=== PATIENT | male | born 1955 | race Caucasian/White ===

== ENCOUNTER 2020-03-26 08:18 | Outpatient (CLI) | payer MEDICARE, SELFPAY ==
[2020-03-26 08:56] LABS: Albumin Level 4.2 g/dL (3.5-5.1); Anion Gap 6 mmol/L (8-16); Blood Urea Nitrogen 20 mg/dL (9-20); Calcium 9.2 mg/dL (8.4-10.2); Carbon Dioxide 29 mmol/L (22-30); Chloride 106 mmol/L (98-107); Estimated Glomerular Filt Rate 51; Glucose 107 mg/dL (75-110); Potassium 4.4 mmol/L (3.4-5.0); Sodium 141 mmol/L (137-145)
== END 2020-03-26 08:19 | disposition home or self-care (01) ==
PROVIDERS: PCP Family Medicine; Visit Provider Internal Medicine Nephrology
DX: R94.4 Abnormal results of kidney function studies (principal)
CPT/HCPCS: 36415; 80069

== ENCOUNTER 2020-08-18 12:40 | Outpatient (CLI) | payer MEDICARE, SELFPAY ==
[2020-08-18 13:26] LABS: Hemoglobin A1C 5.3 % (<5.7)
[2020-08-18 15:04] LABS: Free T4 Free Thyroxine 1.05 ng/mL (0.78-2.19)
[2020-08-20 07:32] LABS: Triiodothyronine T3 Free 3.3 pg/mL (2.3-4.2)
== END 2020-08-18 12:41 | disposition home or self-care (01) ==
LOC: ANHLAB 12:42
PROVIDERS: PCP Physician Assistant; Visit Provider Physician Assistant
DX: E03.9 Hypothyroidism, unspecified (principal); R73.01 Impaired fasting glucose
CPT/HCPCS: 36415; 83036; 84439; 84443; 84481

== ENCOUNTER 2020-10-08 10:02 | Outpatient (CLI) | payer MEDICARE, SELFPAY ==
[2020-10-08 10:21] LABS: Hemoglobin 12.9 g/dL (14.0-18.0); Mean Corpuscular HGB Conc 33.9 g/dl (32-36); Mean Corpuscular Hemoglobin 32.9 pg (26-34); Mean Corpuscular Volume 96.9 fl (80-100); Mean Platelet Volume 10.8 fl (7.4-10.4); Platelet Count Result 205 k/mm3 (150-375); Red Blood Count 3.92 M/mm3 (4.6-6.20); Red Cell Distribution Width 11.9 % (11.5-14.5)
[2020-10-08 10:35] LABS: Albumin Level 4.3 g/dL (3.5-5.1); Anion Gap 6 mmol/L (8-16); Blood Urea Nitrogen 28 mg/dL (9-20); Calcium 8.7 mg/dL (8.4-10.2); Carbon Dioxide 31 mmol/L (22-30); Chloride 103 mmol/L (98-107); Estimated Glomerular Filt Rate 38; Glucose 119 mg/dL (75-110); Phosphorus 3.8 mg/dL (2.5-4.5); Potassium 4.3 mmol/L (3.4-5.0); Sodium 140 mmol/L (137-145)
[2020-10-08 10:36] LABS: Creatinine Urine 209.1 mg/dL
[2020-10-08 10:51] LABS: Total Protein Urine Random 8 mg/dL; Ur Ttl Prot Creatinine Ratio 0.04 mg/mg (0-0.20)
[2020-10-08 11:09] LABS: Parathyroid Intact 83.1 pg/mL (7.5-53.5)
[2020-10-08 11:28] LABS: Vitamin D 25 Hydroxy 36.3 ng/mL
== END 2020-10-08 10:03 | disposition home or self-care (01) ==
LOC: ANHLAB 10:04
PROVIDERS: PCP Physician Assistant; Visit Provider Internal Medicine Nephrology
DX: N18.30 Chronic kidney disease, stage 3 unspecified (principal)
CPT/HCPCS: 36415; 80069; 82306; 82570; 83970; 84156; 85027

== ENCOUNTER 2020-11-10 13:37 | Outpatient (CLI) | payer MEDICARE, SELFPAY ==
[2020-11-10 14:09] LABS: Hematocrit 38.9 % (42.0-52.0); Hemoglobin 12.9 g/dL (14.0-18.0); Mean Corpuscular HGB Conc 33.2 g/dl (32-36); Mean Corpuscular Hemoglobin 32.5 pg (26-34); Mean Platelet Volume 10.9 fl (7.4-10.4); Platelet Count Result 214 k/mm3 (150-375); Red Blood Count 3.97 M/mm3 (4.6-6.20); Red Cell Distribution Width 11.3 % (11.5-14.5); White Blood Count 6.7 K/mm3 (4.5-10.0)
[2020-11-10 14:17] LABS: Creatinine Urine 175.5 mg/dL; Total Protein Urine Random 9 mg/dL; Ur Ttl Prot Creatinine Ratio 0.05 mg/mg (0-0.20)
[2020-11-10 14:24] LABS: Albumin Level 4.5 g/dL (3.5-5.1); Anion Gap 6 mmol/L (8-16); Blood Urea Nitrogen 28 mg/dL (9-20); Calcium 9.4 mg/dL (8.4-10.2); Carbon Dioxide 31 mmol/L (22-30); Chloride 106 mmol/L (98-107); Estimated Glomerular Filt Rate 38; Glucose 106 mg/dL (75-110); Phosphorus 3.6 mg/dL (2.5-4.5); Potassium 4.6 mmol/L (3.4-5.0); Sodium 143 mmol/L (137-145)
[2020-11-10 14:35] LABS: Parathyroid Intact 63.8 pg/mL (7.5-53.5)
== END 2020-11-10 13:38 | disposition home or self-care (01) ==
LOC: ANHLAB 13:45
PROVIDERS: PCP Physician Assistant; Visit Provider Internal Medicine Nephrology
DX: N18.31 Chronic kidney disease, stage 3a (principal)
CPT/HCPCS: 36415; 80069; 82570; 83970; 84156; 85027

== ENCOUNTER 2021-02-01 09:52 | Outpatient (CLI) | payer MEDICARE, SELFPAY ==
[2021-02-01 10:43] LABS: Albumin Level 4.4 g/dL (3.5-5.1); Anion Gap 8 mmol/L (8-16); Blood Urea Nitrogen 20 mg/dL (9-20); Calcium 9.4 mg/dL (8.4-10.2); Carbon Dioxide 29 mmol/L (22-30); Chloride 103 mmol/L (98-107); Estimated Glomerular Filt Rate 34; Glucose 96 mg/dL (65-110); Phosphorus 4.2 mg/dL (2.5-4.5); Potassium 4.7 mmol/L (3.4-5.0); Sodium 140 mmol/L (137-145)
[2021-02-01 11:15] LABS: Creatinine Urine 124.3 mg/dL; Total Protein Urine Random 12 mg/dL
== END 2021-02-01 09:53 | disposition home or self-care (01) ==
PROVIDERS: PCP Physician Assistant; Visit Provider Internal Medicine Nephrology
DX: N18.31 Chronic kidney disease, stage 3a (principal)
CPT/HCPCS: 36415; 80069; 82570; 84156

== ENCOUNTER 2021-02-18 07:22 | Outpatient (CLI) | payer MEDICARE, SELFPAY ==
[2021-02-15 09:33] VITALS: BMI 26.4
[2021-02-18] VITALS (12 sets, daily range): BP systolic 109–157; BP diastolic 62–90; PULSE 48–65; RESP 14–20; O2SAT 95–99
--- NOTE | ~2021-02-18 | US_ITS ---
EXAMINATION: US biopsy renal DATE: 02/18/2021 10:53 INDICATION: Stage IIIB chronic kidney disease. TECHNIQUE: The procedure including the risks, benefits, and alternatives was discussed with the patie nt. Risks discussed included bleeding and infection. The patient understood the risks and agreed to p roceed. A timeout was performed to verify the patient's name, date of , and procedure to be p erformed. The skin overlying the left kidney was prepped and draped in usual sterile fashion. Anest hetic was administered with 1% lidocaine subcutaneously. An 18 gauge core biopsy needle was then use d to obtain 3 core biopsy specimens under continuous sonographic guidance. The entry site was cleaned and dressed. There were no immediate complications. FINDINGS: Ultrasound images demonstrate the needle in the kidney. IMPRESSION: 1. Ultrasound-guided random left kidney core needle biopsy. Reviewed, dictated and finalized at location A.
[2021-02-18 08:18] LABS: Mean Platelet Volume 10.9 fl (7.4-10.4); Platelet Count Result 258 k/mm3 (150-375)
[2021-02-18 08:31] LABS: Prothrombin Time 12.6 Seconds (11.1-14.7)
--- NOTE | 2021-02-18 13:40 | SUR.PHASEII ---
1340- Discharge instructions reviewed with patient and Venkat verbalized understanding. All questions and concerns answered.
== END 2021-02-18 13:50 | disposition home or self-care (01) ==
PROVIDERS: Radiology Diagnostic Radiology; PCP Family Medicine; Visit Provider Internal Medicine Nephrology
DX: N18.32 Chronic kidney disease, stage 3b (principal)
CPT/HCPCS: 36415; 50200; 76942; 85049; 85610; 88300; 88305; 88313; 88329; 88346; 88348; 88350

== ENCOUNTER 2021-06-22 12:38 | Outpatient (CLI) | payer MEDICARE, SELFPAY ==
[2021-06-22 13:13] LABS: Hemoglobin 12.4 g/dL (14.0-18.0); Mean Corpuscular HGB Conc 33.5 g/dl (32-36); Mean Corpuscular Hemoglobin 32.3 pg (26-34); Mean Corpuscular Volume 96.4 fl (80-100); Mean Platelet Volume 10.6 fl (7.4-10.4); Platelet Count Result 233 k/mm3 (150-375); Red Blood Count 3.84 M/mm3 (4.6-6.20); Red Cell Distribution Width 11.8 % (11.5-14.5); White Blood Count 7.8 K/mm3 (4.5-10.0)
[2021-06-22 13:21] LABS: Creatinine Urine 77.4 mg/dL
[2021-06-22 13:24] LABS: Albumin Level 4.1 g/dL (3.5-5.1); Anion Gap 8 mmol/L (8-16); Blood Urea Nitrogen 28 mg/dL (9-20); Calcium 8.8 mg/dL (8.4-10.2); Carbon Dioxide 30 mmol/L (22-30); Chloride 100 mmol/L (98-107); Estimated Glomerular Filt Rate 36; Glucose 114 mg/dL (65-110); Phosphorus 3.7 mg/dL (2.5-4.5); Potassium 4.1 mmol/L (3.4-5.0); Sodium 138 mmol/L (137-145)
[2021-06-22 13:36] LABS: Parathyroid Intact 86.8 pg/mL (7.5-53.5)
[2021-06-22 19:57] LABS: Total Protein Urine Random 12 mg/dL; Ur Ttl Prot Creatinine Ratio 0.16 mg/mg (0-0.20)
== END 2021-06-22 12:39 | disposition home or self-care (01) ==
PROVIDERS: PCP Family Medicine; Visit Provider Internal Medicine Nephrology
DX: N18.32 Chronic kidney disease, stage 3b (principal)
CPT/HCPCS: 36415; 80069; 82570; 83970; 84156; 84166; 85027

== ENCOUNTER 2021-09-09 08:59 | Outpatient (CLI) | payer MEDICARE, SELFPAY ==
[2021-09-09 09:42] LABS: Hematocrit 38.3 % (42.0-52.0); Hemoglobin 12.9 g/dL (14.0-18.0); Mean Corpuscular HGB Conc 33.7 g/dl (32-36); Mean Corpuscular Hemoglobin 33.2 pg (26-34); Mean Corpuscular Volume 98.7 fl (80-100); Mean Platelet Volume 11.2 fl (7.4-10.4); Platelet Count Result 245 k/mm3 (150-375); Red Blood Count 3.88 M/mm3 (4.6-6.20); Red Cell Distribution Width 11.8 % (11.5-14.5); Reticulocyte Percent 1.08 % (0.7-4.3); Reticulocytes Absolute 0.04 B/L (32.2-175.7); White Blood Count 8.9 K/mm3 (4.5-10.0)
[2021-09-09 09:56] LABS: Alanine Aminotransferase 16 U/L (4-50); Albumin Level 4.3 g/dL (3.5-5.1); Alkaline Phosphatase 67 U/L (38-126); Anion Gap 9 mmol/L (8-16); Aspartate Amino Transferase 30 U/L (17-59); Bilirubin,Total 0.6 mg/dL (0.2-1.3); Blood Urea Nitrogen 24 mg/dL (9-20); Carbon Dioxide 31 mmol/L (22-30); Chloride 100 mmol/L (98-107); Estimated Glomerular Filt Rate 41; Glucose 147 mg/dL (65-110); Sodium 140 mmol/L (137-145)
[2021-09-09 10:21] LABS: Iron 100 ug/dL (49-181)
[2021-09-09 10:24] LABS: Prostate Specific Antigen 0.7 ng/mL (< OR = 4.0)
[2021-09-09 10:33] LABS: Percent Iron Saturation 30 % (20-50)
[2021-09-09 11:44] LABS: Free T4 Free Thyroxine Reflex 0.91 ng/dL (0.78-2.19)
[2021-09-09 12:24] LABS: Total Triiodothyronine (T3) 1.23 NG/ML (0.97-1.69)
== END 2021-09-09 09:00 | disposition home or self-care (01) ==
PROVIDERS: PCP Family Medicine; Visit Provider Family Medicine
DX: D64.9 Anemia, unspecified (principal); R79.89 Other specified abnormal findings of blood chemistry; Z12.5 Encounter for screening for malignant neoplasm of prostate; I12.9 Hypertensive chronic kidney disease with stage 1 through stage 4 chronic kidney disease, or unspecified chronic kidney disease; N18.30 Chronic kidney disease, stage 3 unspecified
CPT/HCPCS: 36415; 80053; 82728; 83540; 83550; 84153; 84439; 84443; 84480; 85027; 85046; G0103

== ENCOUNTER 2021-12-30 07:17 | Outpatient (CLI) | payer MEDICARE, SELFPAY ==
[2021-12-30 08:07] LABS: Creatinine Urine 72.2 mg/dL; Total Protein Urine Random 12 mg/dL; Ur Ttl Prot Creatinine Ratio 0.17 mg/mg (0-0.20)
[2021-12-30 08:33] LABS: Hematocrit 37.4 % (42.0-52.0); Hemoglobin 12.4 g/dL (14.0-18.0); Mean Corpuscular HGB Conc 33.2 g/dl (32-36); Mean Corpuscular Hemoglobin 32.6 pg (26-34); Mean Corpuscular Volume 98.4 fl (80-100); Mean Platelet Volume 10.9 fl (7.4-10.4); Platelet Count Result 250 k/mm3 (150-375); Red Cell Distribution Width 11.5 % (11.5-14.5); White Blood Count 6.6 K/mm3 (4.5-10.0)
[2021-12-30 08:45] LABS: Parathyroid Intact 49.7 pg/mL (7.5-53.5)
[2021-12-30 08:48] LABS: Albumin Level 4.4 g/dL (3.5-5.1); Anion Gap 4 mmol/L (8-16); Blood Urea Nitrogen 28 mg/dL (9-20); Calcium 8.8 mg/dL (8.4-10.2); Carbon Dioxide 30 mmol/L (22-30); Chloride 102 mmol/L (98-107); Estimated Glomerular Filt Rate 36; Glucose 114 mg/dL (65-110); Phosphorus 3.1 mg/dL (2.5-4.5); Potassium 4.7 mmol/L (3.4-5.0); Sodium 136 mmol/L (137-145)
[2021-12-30 09:06] LABS: Vitamin D 25 Hydroxy 63.6 ng/mL
== END 2021-12-30 07:18 | disposition home or self-care (01) ==
LOC: ANHLAB 07:24
PROVIDERS: PCP Family Medicine; Visit Provider Internal Medicine Nephrology
DX: N18.32 Chronic kidney disease, stage 3b (principal); E21.1 Secondary hyperparathyroidism, not elsewhere classified
CPT/HCPCS: 36415; 80069; 82306; 82570; 83970; 84156; 85027

== ENCOUNTER 2022-03-22 10:21 | Outpatient (CLI) | payer MEDICARE, SELFPAY ==
[2022-03-22 10:59] LABS: Hematocrit 36.5 % (42.0-52.0); Hemoglobin 12.5 g/dL (14.0-18.0); Immature Reticulocyte Fraction 9.8 % (3.0-15.9); Mean Corpuscular HGB Conc 34.2 g/dl (32-36); Mean Corpuscular Hemoglobin 33.1 pg (26-34); Mean Corpuscular Volume 96.6 fl (80-100); Mean Platelet Volume 9.8 fl (7.4-10.4); Platelet Count Result 274 k/mm3 (150-375); Red Blood Count 3.78 M/mm3 (4.6-6.20); Red Cell Distribution Width 11.4 % (11.5-14.5); Reticulocyte Hemoglobin Conten 38.5 pg (28.2-35.7); Reticulocyte Percent 1.08 % (0.7-4.3); Reticulocytes Absolute 0.04 B/L (32.2-175.7); White Blood Count 7.4 K/mm3 (4.5-10.0)
[2022-03-22 11:14] LABS: Alanine Aminotransferase 18 U/L (6-50); Albumin Level 4.3 g/dL (3.5-5.1); Alkaline Phosphatase 77 U/L (38-126); Anion Gap 10 mmol/L (8-16); Aspartate Amino Transferase 28 U/L (17-59); Bilirubin,Total 0.4 mg/dL (0.2-1.3); Blood Urea Nitrogen 15 mg/dL (9-20); Calcium 9.1 mg/dL (8.4-10.2); Carbon Dioxide 29 mmol/L (22-30); Chloride 100 mmol/L (98-107); Cholesterol 140 mg/dL (0-200); Estimated Glomerular Filt Rate 43; Glucose 104 mg/dL (65-110); HDL Direct 41 mg/dL; Potassium 4.2 mmol/L (3.4-5.0); Sodium 139 mmol/L (137-145); Triglycerides 113 mg/dL (<150)
[2022-03-22 11:25] LABS: LDL Cholesterol Direct 79 mg/dL
[2022-03-22 11:34] LABS: Hemoglobin A1C 5.5 % (<5.7)
[2022-03-23 11:14] LABS: Free T4 Free Thyroxine Reflex 1.17 ng/dL (0.78-2.19)
[2022-03-23 12:18] LABS: Total Triiodothyronine (T3) 1.39 NG/ML (0.97-1.69)
[2022-03-25 10:40] LABS: Hemoglobin 12.5 g/dL (13.2-17.1); MCH 32.6 pg (27.0-33.0); MCV 96.4 fL (80.0-100.0); RDW 11.4 % (11.0-15.0); Red Blood Cell Count 3.84 Mill/uL (4.20-5.80)
== END 2022-03-22 10:22 | disposition home or self-care (01) ==
PROVIDERS: PCP Family Medicine; Visit Provider Family Medicine
DX: D64.9 Anemia, unspecified (principal); E78.2 Mixed hyperlipidemia; E03.9 Hypothyroidism, unspecified; E11.9 Type 2 diabetes mellitus without complications; I10 Essential (primary) hypertension
CPT/HCPCS: 36415; 80053; 80061; 82248; 83021; 83036; 84439; 84443; 84480; 85027; 85046

== ENCOUNTER 2022-07-01 07:39 | Outpatient (CLI) | payer MEDICARE, SELFPAY ==
[2022-07-01 07:55] LABS: Basophils Percent Auto 0.4 % (0.2-1.2); Eosinophils Absolute Auto 0.2 K/mm3 (0-0.3); Eosinophils Percent Auto 2.3 % (0-4.4); Hematocrit 37.6 % (42.0-52.0); Hemoglobin 12.6 g/dL (14.0-18.0); Immature Granulocyte Absolute 0.01 K/mm3 (0.00-0.031); Immature Granulocyte Percent A 0.1 % (0-0.5); Lymphocytes Absolute Auto 2.53 K/mm3 (0.9-3.2); Lymphocytes Percent Auto 36.4 % (18.3-44.2); Mean Corpuscular HGB Conc 33.5 g/dl (32-36); Mean Corpuscular Volume 95.4 fl (80-100); Mean Platelet Volume 9.9 fl (7.4-10.4); Monocytes Absolute Auto 0.5 K/mm3 (0.1-0.6); Monocytes Percent Auto 7.2 % (2.6-8.5); Neutrophils Absolute Auto 3.7 K/mm3 (1.3-6.7); Neutrophils Percent Auto 53.6 % (45.5-73.1); Platelet Count Result 247 k/mm3 (150-375); Red Blood Count 3.94 M/mm3 (4.6-6.20); Red Cell Distribution Width 12.1 % (11.5-14.5)
[2022-07-01 07:58] LABS: Add Urine Microscopic? NO; Appearance Urine Clear (Clear); Bilirubin Urine Negative (Negative); Blood Urine Negative (Negative); Color Urine Yellow (Yellow); Glucose Urine UA Negative (Negative); Ketones Urine Negative (Negative); Leukocyte Esterase Ur Negative LEU/UL (Negative); Nitrate Urine Negative (Negative); Protein Urine Negative (Negative); Specific Grav Ur <= 1.005 (1.001-1.035); Urobilinogen Urine 0.2 mg/dL (<2.0)
[2022-07-01 08:14] LABS: Alanine Aminotransferase 19 U/L (6-50); Albumin Level 4.4 g/dL (3.5-5.1); Alkaline Phosphatase 72 U/L (38-126); Anion Gap 6 mmol/L (8-16); Aspartate Amino Transferase 27 U/L (17-59); Bilirubin,Total 0.5 mg/dL (0.2-1.3); Blood Urea Nitrogen 26 mg/dL (9-20); Calcium 8.7 mg/dL (8.4-10.2); Carbon Dioxide 30 mmol/L (22-30); Chloride 103 mmol/L (98-107); Cholesterol 164 mg/dL (0-200); Estimated Glomerular Filt Rate 38; Glucose 113 mg/dL (65-110); HDL Direct 44 mg/dL; Potassium 4.6 mmol/L (3.4-5.0); Sodium 139 mmol/L (137-145); Triglycerides 76 mg/dL (<150)
[2022-07-01 08:25] LABS: LDL Cholesterol Direct 90 mg/dL
[2022-07-01 08:32] LABS: Erythrocyte Sedimentation Rate 18 mm/hr (0-20)
[2022-07-01 10:50] LABS: Vitamin D 25 Hydroxy 44.4 ng/mL
[2022-07-01 22:40] LABS: Total Triiodothyronine (T3) 1.39 NG/ML (0.97-1.69)
== END 2022-07-01 07:40 | disposition home or self-care (01) ==
PROVIDERS: PCP Family Medicine; Visit Provider Family Medicine
DX: E78.2 Mixed hyperlipidemia (principal); E55.9 Vitamin D deficiency, unspecified; D64.9 Anemia, unspecified; M45.0 Ankylosing spondylitis of multiple sites in spine; E03.9 Hypothyroidism, unspecified; I12.9 Hypertensive chronic kidney disease with stage 1 through stage 4 chronic kidney disease, or unspecified chronic kidney disease; N18.30 Chronic kidney disease, stage 3 unspecified
CPT/HCPCS: 36415; 80053; 80061; 81003; 82306; 84439; 84443; 84480; 85025; 85652

== ENCOUNTER 2023-01-05 07:26 | Outpatient (CLI) | payer MEDICARE, SELFPAY ==
--- NOTE | ~2023-01-05 | XR_ITS ---
EXAMINATION: XR abdomen/kub 1V INDICATION: Kidney stone burden TECHNIQUE: Supine views of the abdomen were obtained on three radiographs. COMPARISON: 02/14/2018 FINDINGS: Bowel contents project over the kidneys limiting sensitivity for renal stones. No definite urolithiasis is identified. There are phleboliths of the pelvis. The visualized lung bases are clear. There is mild osteoarthritis of the hips. IMPRESSION: 1. No urolithiasis identified. Consider further evaluation with CT if urolithiasis is suspected. Reviewed, dictated and finalized at location L. IMPRESSION: 1. No urolithiasis identified. Consider further evaluation with CT if urolithia sis is suspected.
[2023-01-05 08:00] LABS: Hematocrit 35.4 % (42.0-52.0); Hemoglobin 11.9 g/dL (14.0-18.0); Mean Corpuscular HGB Conc 33.6 g/dl (32-36); Mean Corpuscular Hemoglobin 32.3 pg (26-34); Mean Corpuscular Volume 96.2 fl (80-100); Mean Platelet Volume 9.2 fl (7.4-10.4); Platelet Count Result 333 k/mm3 (150-375); Red Blood Count 3.68 M/mm3 (4.6-6.20); Red Cell Distribution Width 11.2 % (11.5-14.5); White Blood Count 6.4 K/mm3 (4.5-10.0)
[2023-01-05 08:01] LABS: Appearance Urine Clear (Clear); Bilirubin Urine Negative (Negative); Blood Urine Negative (Negative); Color Urine Yellow (Yellow); Glucose Urine UA Negative (Negative); Ketones Urine Negative (Negative); Leukocyte Esterase Ur Negative LEU/UL (NEGATIVE); Nitrate Urine Negative (Negative); Protein Urine Negative (Negative); Specific Grav Ur 1.009 (1.001-1.035); Urobilinogen Urine 0.2 mg/dL (<2.0)
[2023-01-05 08:22] LABS: Total Protein Urine Random 12 mg/dL
[2023-01-05 08:25] LABS: Alanine Aminotransferase 18 U/L (6-50); Albumin Level 4.6 g/dL (3.5-5.1); Alkaline Phosphatase 64 U/L (38-126); Aspartate Amino Transferase 28 U/L (17-59); Bilirubin,Total 0.5 mg/dL (0.2-1.3)
[2023-01-05 08:26] LABS: Add Urine Microscopic? NO
[2023-01-05 08:26] LABS: Albumin Level 4.6 g/dL (3.5-5.1); Anion Gap 7 mmol/L (8-16); Blood Urea Nitrogen 19 mg/dL (9-20); Calcium 9.2 mg/dL (8.4-10.2); Carbon Dioxide 35 mmol/L (22-30); Chloride 92 mmol/L (98-107); Estimated Glomerular Filt Rate 51; Glucose 107 mg/dL (65-110); Phosphorus 3.8 mg/dL (2.5-4.5); Potassium 4.1 mmol/L (3.4-5.0); Sodium 134 mmol/L (137-145)
[2023-01-05 08:28] LABS: Creatinine Urine 103.7 mg/dL; Ur Ttl Prot Creatinine Ratio 0.12 mg/mg (0-0.20)
[2023-01-05 08:36] LABS: Iron 104 ug/dL (49-181)
[2023-01-05 08:38] LABS: Parathyroid Intact 34.1 pg/mL (7.5-53.5)
[2023-01-05 08:44] LABS: Percent Iron Saturation 30 % (20-50)
[2023-01-05 08:49] LABS: Hemoglobin A1C 5.6 % (<5.7)
[2023-01-05 08:55] LABS: Prostate Specific Antigen 0.7 ng/mL (< OR = 4.0)
== END 2023-01-05 07:27 | disposition home or self-care (01) ==
PROVIDERS: PCP Family Medicine; Referring Provider Internal Medicine Nephrology; Visit Provider Family Medicine
DX: R73.9 Hyperglycemia, unspecified (principal); Z12.5 Encounter for screening for malignant neoplasm of prostate; D64.9 Anemia, unspecified; E03.9 Hypothyroidism, unspecified; Z79.899 Other long term (current) drug therapy; N18.32 Chronic kidney disease, stage 3b; I10 Essential (primary) hypertension; N20.0 Calculus of kidney
CPT/HCPCS: 36415; 74018; 80069; 80076; 81003; 82570; 82728; 83036; 83540; 83550; 83970; 84153; 84156; 84443; 84550; 85027; G0103

== ENCOUNTER 2023-01-06 08:41 | Outpatient (CLI) | payer MEDICARE, SELFPAY ==
[2023-01-16 19:09] LABS: Magnesium, 24-Hour Urine 135 mg/day (>60.0); Phosphorus, 24-Hour Urine 406 mg/day (<1100); Sodium 24 Hour Urine 96 mEq/day (<200); Total Volume 24 Hour Urine 2 L/day (>2.00); Uric Acid, 24-Hour Urine 350 mg/day (<700)
== END 2023-01-06 08:42 | disposition home or self-care (01) ==
PROVIDERS: PCP Family Medicine; Visit Provider Internal Medicine Nephrology
DX: N20.0 Calculus of kidney (principal); I12.9 Hypertensive chronic kidney disease with stage 1 through stage 4 chronic kidney disease, or unspecified chronic kidney disease; N18.32 Chronic kidney disease, stage 3b
CPT/HCPCS: 82340

== ENCOUNTER 2023-07-04 07:12 | Outpatient (CLI) | payer MEDICARE, SELFPAY ==
[2023-07-04 07:40] LABS: Hematocrit 35.4 % (42.0-52.0); Hemoglobin 11.7 g/dL (14.0-18.0); Mean Corpuscular HGB Conc 33.1 g/dl (32-36); Mean Corpuscular Hemoglobin 32.8 pg (26-34); Mean Corpuscular Volume 99.2 fl (80-100); Mean Platelet Volume 9.3 fl (7.4-10.4); Platelet Count Result 281 k/mm3 (150-375); Red Blood Count 3.57 M/mm3 (4.6-6.20); Red Cell Distribution Width 11.3 % (11.5-14.5); White Blood Count 6.6 K/mm3 (4.5-10.0)
[2023-07-04 07:44] LABS: Appearance Urine Clear (Clear); Bilirubin Urine Negative (Negative); Blood Urine Negative (Negative); Color Urine Yellow (Yellow); Glucose Urine UA Negative (Negative); Ketones Urine Negative (Negative); Leukocyte Esterase Ur Negative LEU/UL (NEGATIVE); Nitrate Urine Negative (Negative); Protein Urine Negative (Negative); Specific Grav Ur 1.009 (1.001-1.035); Urobilinogen Urine 0.2 mg/dL (<2.0); pH Urine 6.5 (5.0-9.0)
[2023-07-04 07:52] LABS: Albumin Level 4.2 g/dL (3.5-5.1); Anion Gap 7 mmol/L (8-16); Blood Urea Nitrogen 23 mg/dL (9-20); Carbon Dioxide 30 mmol/L (22-30); Chloride 95 mmol/L (98-107); Estimated Glomerular Filt Rate 47; Glucose 113 mg/dL (65-110); Phosphorus 3.6 mg/dL (2.5-4.5); Potassium 4.9 mmol/L (3.4-5.0); Sodium 132 mmol/L (137-145); Uric Acid 7.4 mg/dL (3.5-8.5)
[2023-07-04 07:53] LABS: Creatinine Urine 77.9 mg/dL; Total Protein Urine Random 15 mg/dL; Ur Ttl Prot Creatinine Ratio 0.19 mg/mg (0-0.20)
[2023-07-04 08:01] LABS: Parathyroid Intact 39.5 pg/mL (7.5-53.5)
[2023-07-04 08:09] LABS: Add Urine Microscopic? YES
== END 2023-07-04 07:13 | disposition home or self-care (01) ==
LOC: ANHLAB 07:15
PROVIDERS: PCP Family Medicine; Visit Provider Internal Medicine Nephrology
DX: N20.0 Calculus of kidney (principal); N18.32 Chronic kidney disease, stage 3b; N18.9 Chronic kidney disease, unspecified
CPT/HCPCS: 36415; 80069; 81001; 82570; 83970; 84156; 84550; 85027

== ENCOUNTER 2023-07-14 06:46 | Outpatient (CLI) | payer MEDICARE, SELFPAY ==
[2023-07-14 09:56] LABS: Free T4 Free Thyroxine Reflex 1.45 ng/dL (0.78-2.19)
[2023-07-14 10:36] LABS: Total Triiodothyronine (T3) 1.44 NG/ML (0.97-1.69)
== END 2023-07-14 06:47 | disposition home or self-care (01) ==
LOC: ANHLAB 07:01
PROVIDERS: PCP Family Medicine; Visit Provider Family Medicine
DX: E03.9 Hypothyroidism, unspecified (principal); E53.8 Deficiency of other specified B group vitamins
CPT/HCPCS: 36415; 82607; 84439; 84443; 84480

== ENCOUNTER 2024-01-03 06:40 | Outpatient (CLI) | payer MEDICARE, SELFPAY ==
--- NOTE | ~2024-01-03 | XR_ITS ---
XR abdomen/kub 1V 01/03/2024 07:12 INDICATION: Kidney stones. Hyponatremia. TECHNIQUE: KUB COMPARISON: None FINDINGS: Bowel gas pattern is normal. There is no evidence of free air, mass, organomegaly, ascites or obstruction. No abnormal calculi are seen. Kidneys obscured by bowel content. Lung bases are unr emarkable. The bones appear intact. IMPRESSION: 1: No acute abdominal abnormality identified. Reviewed, dictated and finalized at location B.
[2024-01-03 07:55] LABS: Hematocrit 36.6 % (42.0-52.0); Hemoglobin 12.4 g/dL (14.0-18.0); Mean Corpuscular HGB Conc 33.9 g/dl (32-36); Mean Corpuscular Hemoglobin 33.2 pg (26-34); Mean Corpuscular Volume 97.9 fl (80-100); Mean Platelet Volume 10.5 fl (7.4-10.4); Platelet Count Result 287 k/mm3 (150-375); Red Blood Count 3.74 M/mm3 (4.6-6.20); Red Cell Distribution Width 11.4 % (11.5-14.5); White Blood Count 5.4 K/mm3 (4.5-10.0)
[2024-01-03 08:13] LABS: Alanine Aminotransferase 15 U/L (6-50); Albumin Level 4.6 g/dL (3.5-5.1); Alkaline Phosphatase 70 U/L (38-126); Aspartate Amino Transferase 27 U/L (17-59); Bilirubin,Total 0.6 mg/dL (0.2-1.3); Cholesterol 147 mg/dL (0-200); HDL Direct 55 mg/dL; Triglycerides 92 mg/dL (<150)
[2024-01-03 08:14] LABS: Albumin Level 4.6 g/dL (3.5-5.1); Anion Gap 7 mmol/L (4-12); Blood Urea Nitrogen 17 mg/dL (9-20); Calcium 9.1 mg/dL (8.4-10.2); Carbon Dioxide 32 mmol/L (22-30); Chloride 96 mmol/L (98-107); Estimated Glomerular Filt Rate 47; Glucose 109 mg/dL (65-110); Phosphorus 3.2 mg/dL (2.5-4.5); Potassium 4.2 mmol/L (3.4-5.0); Sodium 135 mmol/L (137-145)
[2024-01-03 08:24] LABS: LDL Cholesterol Direct 81 mg/dL
[2024-01-03 10:52] LABS: Parathyroid Intact 31.2 pg/mL (7.5-53.5)
[2024-01-03 10:56] LABS: Creatinine Urine 31.1 mg/dL; Total Protein Urine Random 20 mg/dL; Ur Ttl Prot Creatinine Ratio 0.64 mg/mg (0-0.20)
== END 2024-01-03 06:41 | disposition home or self-care (01) ==
PROVIDERS: PCP Family Medicine; Referring Provider Family Medicine; Visit Provider Internal Medicine Nephrology
DX: E03.9 Hypothyroidism, unspecified (principal); E78.2 Mixed hyperlipidemia; M45.0 Ankylosing spondylitis of multiple sites in spine; E87.1 Hypo-osmolality and hyponatremia; N20.0 Calculus of kidney; I12.9 Hypertensive chronic kidney disease with stage 1 through stage 4 chronic kidney disease, or unspecified chronic kidney disease; N18.32 Chronic kidney disease, stage 3b
CPT/HCPCS: 36415; 74018; 80061; 80069; 80076; 82570; 83970; 84156; 84443; 85027

== ENCOUNTER 2024-03-09 09:08 | Emergency (ER) | payer MEDICARE, SELFPAY ==
[2024-03-09 09:13] VITALS: BP 149/66; PULSE 60; RESP 20; TEMP 36.5; O2SAT 100
[2024-03-09] MEDS: ACETAMINOPHEN 325 MG TABLET 650 MG PO (09:51)
[2024-03-09] MEDS: SODIUM CHLORIDE 0.9% IV 1,000 ML 999 ML IV CONT (09:52)
[2024-03-09] MEDS: diazePAM INJ (*CRX) 10 MG/2 ML SYRINGE 5 MG IV PUSH (09:52)
--- NOTE | 2024-03-09 11:36 | ED.BACK ---
HPI - Back Pain/Injury General Chief Complaint: Back Pain/Injury Stated Complaint: back pain Time Seen by Provider: 03/09/24 09:18 History of Present Illness HPI Narrative: Patient is a 68-year-old male who presents ER with left-sided upper back pain. Sudden onset this morning when waking up. Had had some aching yesterday. Reports he had recently been cleaning out a refrigerator in bending over a lot which may have provoked this. He has known ankylosing spondylitis and has a muscle cramps in the past. This seems more intense. No difficulty breathing. No productive cough. Reports chronic kidney issues as well. Related Data Home Medications Medication Instructions Recorded Confirmed lqumwkqt-fczbmchh-afyst acid 400 1 tablet PO DAILY 08/03/20 01/11/24 mcg-vit K 20 mcg-lycop 300 mcg tablet (Men's Multivitamin) ascorbate calcium (vitamin C) 500 500 mg PO DAILY 01/03/22 01/11/24 mg tablet loratadine 10 mg tablet 10 mg PO DAILY 01/03/22 01/11/24 Allergies Allergy/AdvReac Type Severity Reaction Status Date / Time Sulfa (Sulfonamide Allergy Unknown Rash Verified 03/09/24 09:21 Antibiotics) Review of Systems Constitutional: Constitutional: Reports no additional constitutional complaints Musculoskeletal: Musculoskeletal: Reports back pain, Denies arthralgias and Denies joint swelling Neurologic: Reports system reviewed and no additional complaints, except as documented PMF Past Medical History Medical History Anemia chronic anemia-Likely related to chronic disease Hypertension Hypothyroidism Urinary symptom or sign Family History Family History Father Diabetes mellitus Acute myocardial infarction, Onset Age: 62 Sibling Hypertension Mother Carcinoma of colon, Onset Age: 70 Social History Social History Years smoked: 50 Smoking status: Current every day smoker (11 cigarettes daily) Tobacco type: cigarettes Second hand tobacco smoke exposure: Yes Alcohol intake: never Substance use: current Substance use type: marijuana Do You Feel Safe in your Home?: Yes Lack of Transportation: No Lack of Food: Never True Current Housing: I Have Housing Concerned About Future Housing: No Difficulty Paying Gas/Electric Bills: No Difficulty Paying for Meds: No Currently Unemployed: No Education: High School Diploma/GED Difficulty w/ Childcare or Family Care: No Gender identity (if verbalized by the patient): Male Sexual Orientation (if Verbalized by the Patient): Straight or Heterosexual Spiritual care concerns: No Agree to blood products: Yes Exam Narrative: GENERAL: Well-appearing, well-nourished, and in no acute distress. HEAD: Normocephalic, atraumatic. CHEST: Clear to auscultation. No respiratory distress. HEART: Regular rate and rhythm. Normal peripheral pulses. Back: Tender palpation over the rhomboid musculature in the left upper back. No midline tenderness the T/L-spine. EXTREMITIES: Normal range of motion. No edema. SKIN: Warm, dry, no rash. NEURO: Alert and oriented x3. PSYCH: Normal mood and affect. Course Course Emergency Course: Pain resolved with Tylenol/IV fluids/Valium. Discharge home. Vital Signs Vital signs: Vital Signs Temperature 97.7 F 03/09/24 09:13 Pulse Rate 60 03/09/24 09:13 Respiratory Rate 03/09/24 09:13 Blood Pressure 149/66 H 03/09/24 09:13 Pulse Oximetry 100 03/09/24 09:13 Oxygen Delivery Room Air 03/09/24 09:13 Temperature 97.7 F 03/09/24 09:13 Pulse Rate 60 03/09/24 09:13 Respiratory Rate 03/09/24 09:13 Blood Pressure 149/66 H 03/09/24 09:13 Pulse Oximetry 100 03/09/24 09:13 Oxygen Delivery Room Air 03/09/24 09:13 Discharge Plan Discharge Clinical Impression: Back
[2024-03-09 11:46] VITALS: BP 127/67; PULSE 64; RESP 20; TEMP 36.8; O2SAT 100
== END 2024-03-09 11:48 | disposition home or self-care (01) ==
PROVIDERS: Emergency Provider Emergency Medicine; PCP Family Medicine
DX: M62.830 Muscle spasm of back (principal); I10 Essential (primary) hypertension; E03.9 Hypothyroidism, unspecified; F17.210 Nicotine dependence, cigarettes, uncomplicated
CPT/HCPCS: 96361; 96374; 99284; A9270; J3360; J7030

== ENCOUNTER 2024-07-03 07:54 | Outpatient (CLI) | payer OTHER, SELFPAY ==
--- NOTE | ~2024-07-03 | XR_ITS ---
EXAMINATION: XR chest 2V DATE: 07/03/2024 08:29 INDICATION: Hypo-osmolality and hyponatremia. TECHNIQUE: Frontal and lateral views of the chest were obtained on 3 radiographs. COMPARISON: Chest 2 views 05/31/2010 FINDINGS: There is no pneumonia, pleural effusion, or pneumothorax. The heart size is normal. Calcifi ed subcarinal lymph nodes are consistent with old granulomatous disease. IMPRESSION: 1. No acute cardiopulmonary disease. Reviewed, dictated and finalized at location A. RAL LOT ATTENDANT
[2024-07-03 08:58] LABS: Hematocrit 36.3 % (42.0-52.0); Hemoglobin 12.1 g/dL (14.0-18.0); Mean Corpuscular HGB Conc 33.3 g/dl (32-36); Mean Corpuscular Hemoglobin 33.3 pg (26-34); Mean Platelet Volume 10.3 fl (7.4-10.4); Platelet Count Result 281 k/mm3 (150-375); Red Blood Count 3.63 M/mm3 (4.6-6.20); Red Cell Distribution Width 11.4 % (11.5-14.5); White Blood Count 5.5 K/mm3 (4.5-10.0)
[2024-07-03 09:40] LABS: Albumin Level 4.3 g/dL (3.5-5.1); Anion Gap 4 mmol/L (4-12); Blood Urea Nitrogen 17 mg/dL (9-20); Carbon Dioxide 32 mmol/L (22-30); Chloride 101 mmol/L (98-107); Estimated Glomerular Filt Rate 54; Glucose 99 mg/dL (65-110); Phosphorus 3.5 mg/dL (2.5-4.5); Potassium 4.4 mmol/L (3.4-5.0); Sodium 137 mmol/L (137-145)
[2024-07-03 10:21] LABS: Cortisol Random 8.26 ug/dL
[2024-07-03 10:24] LABS: Creatinine Urine 95.9 mg/dL; Total Protein Urine Random 15 mg/dL; Ur Ttl Prot Creatinine Ratio 0.16 mg/mg (0-0.20)
[2024-07-03 10:30] LABS: Parathyroid Intact 33.3 pg/mL (14.5-75.2)
[2024-07-04 08:38] LABS: Protein, Total 6.2 g/dL (6.1-8.1)
[2024-07-04 15:33] LABS: Osmolality, Urine 349 mOsm/kg (50-1200)
== END 2024-07-03 07:55 | disposition home or self-care (01) ==
LOC: ANHLAB 07:58
PROVIDERS: PCP Family Medicine; Visit Provider Internal Medicine Nephrology
DX: N18.32 Chronic kidney disease, stage 3b (principal); N20.0 Calculus of kidney; F17.200 Nicotine dependence, unspecified, uncomplicated; N18.9 Chronic kidney disease, unspecified; I10 Essential (primary) hypertension; E87.1 Hypo-osmolality and hyponatremia
CPT/HCPCS: 36415; 71046; 80069; 82533; 82570; 83930; 83935; 83970; 84155; 84156; 84165; 84443; 85027

== ENCOUNTER 2024-07-17 07:45 | Outpatient (CLI) | payer OTHER, SELFPAY ==
[2024-07-17 08:20] LABS: Alanine Aminotransferase 16 U/L (6-50); Albumin Level 4.4 g/dL (3.5-5.1); Alkaline Phosphatase 73 U/L (38-126); Anion Gap 7 mmol/L (4-12); Aspartate Amino Transferase 29 U/L (17-59); Bilirubin,Total 0.6 mg/dL (0.2-1.3); Blood Urea Nitrogen 16 mg/dL (9-20); Calcium 9.4 mg/dL (8.4-10.2); Carbon Dioxide 31 mmol/L (22-30); Chloride 99 mmol/L (98-107); Cholesterol 149 mg/dL (0-200); Estimated Glomerular Filt Rate 51; Glucose 112 mg/dL (65-110); HDL Direct 52 mg/dL; Potassium 4.9 mmol/L (3.4-5.0); Sodium 137 mmol/L (137-145); Triglycerides 81 mg/dL (<150)
[2024-07-17 08:31] LABS: LDL Cholesterol Direct 83 mg/dL
[2024-07-17 08:47] LABS: Prostate Specific Antigen 2.2 ng/mL (< OR = 4.0)
--- OUTSIDE RECORDS SUMMARY | 2024-07-18 21:23 | XMS_ITS | Clinical Summary ---
Author Organization [facility] Address [address] [address] Phone Care Team Providers Care Car Dumper Operator Name Role Phone Unavailable Primary Care Provider Unavailabl e Medications polyethylene glycol (MIRALAX) Powder Mix the entire bottle with 64 oz of a clear liquid. Use as directed by the office for colonoscopy prep. 255 g 0 6 Active Social History Tobacco Use Types Packs/Day Years Used Date Smoking Tobacco: Never Assessed Sex and Gender Information Value Date Recorded Sex Assigned at Not on file Legal Sex Male 12:20 AM CDT Gender Identity Not on file Sexual Orientation Not on file Plan of Treatment Health Maintenance Due Date Last Done Comments Hepatitis C Virus (HCV) Screening 1955 TdaP Immunization 1955 Colonoscopy 2000 Colorectal Cancer Screening 2000 Cologuard 2005 Immunochemical Fecal Occult Blood 2005 Pneumococcal Immunization (5 0+ years) (1 of 1 - PCV) 2005 Zoster Immunization (1 of 2) 2005 PSA Discussion 2010 Influenza Immunization (#1) 2024 SARS-COV-2 Immunization (1 - 2023- season) 2024 Respiratory Syncytial Virus (RSV) Immunization (Adult) (1 - 1-dose 75+ series) 2030 Hepatitis B Immunization Aged Out No longer eligible based on patient's age to complete this topic Meningococcal Immunization (ACWY) Aged Out No longer eligible based on patient's age to complete this topic Rotavirus Immunization Aged Out No lo nger eligible based on patient's age to complete this topic Insurance MEDICARE
--- OUTSIDE RECORDS SUMMARY | 2024-07-18 21:23 | XMS_ITS | Clinical Summary ---
Author Organization [facility] Address [address] [place] [phone] Phone Care Team Providers Care Brace Maker Name Role Phone Lay Melo MD Primary Care Provider [phone] Allergies Active Allergy Reactions Criticality Noted Date Comments Sulfa Antibiotics 03/20/2019 Medications Medication Sig Dispensed Refills Start Date End Date Status acetaminophen (TYLENOL) 325 MG tablet 1 as needed 0 03/19/2018 Active lisinopril (PRINIVIL,ZESTRIL) 10 MG tablet 1 daily 0 03/16/2018 Active indapamide (LOZOL) 2.5 MG tablet 1 daily 0 03/16/2018 Active busPIRone (BUSPAR) 15 MG tablet 02/10/2020 Active morphine (MS CONTIN) 60 MG 12 hr tablet 03/19/2020 Active omeprazole (PriLOSEC) [address] capsule Take 20 mg by mouth 2 (two) times a day 02/05/2020 Active calcium carbonate (TUMS) 500 MG chewable tablet Chew 500 mg 1 (one) time each day take with biggest meal Active amLODIPine (NORVASC) 5 MG tablet TAKE 1 TABLET (5 MG TOTAL) BY MOUTH 1 (ONE) TIME EACH DAY 90 tablet 3 06/20/2022 Active Active Problems Problem Noted Date Diagnosed Date Acute kidney failure 03/19/2018 Essential (primary) hypertension 03/19/2018 Calculus of kidney 03/19/2018 Ankylosing spondylitis in spine 03/19/2018 Immunizations Name Administration Dates Next Due Influenza TIV (IM) 05/29/2021,03/19/2020 Pneumococcal Conjugate 01/10/2022(Deferred: Nelly ent Refused) Pneumococcal Conjugate 13-Valent 01/10/2022(Defe rred: Patient Refused) Family History Medical History Relation Comments Diabetes mellitus Father Malignant neoplastic disease Mother Kidney stone Sibling Relation Status Comments Father Mother Sibling Social History Tobacco Use Types Packs/Day Years Used Date Smoking Tobacco: Heavy Smoker Smokeless Tobacco: Never Tobacco Cessation:Ready to Q uit: No; Counseling Given: Yes Alcohol Use Standard Drinks/Week Comments Defer 0 (1 standard drink = 0.6 oz pur e alcohol) Sex and Gender Information Value Date Recorded Sex Assigned at Not on file Gender Identity Not on file Sexual Orientation Not on file Last Filed Vital Signs Vital Sign Reading Time Taken Comments Blood Pressure 122/64 01/10/2022 2:08 PM CDT Pulse 72 01/10/2022 2:08 PM CDT Temperature 36.8 ??C (98.2 ??F) 01/10/2022 2:08 PM CD T Respiratory Rate - - Oxygen Saturation - - Inhaled Oxygen Concentration - - Weight 68.5 kg (151 lb) 01/10/2022 2:08 PM CDT Height 175.3 cm (5' 9 ) 01/10/2022 2:08 PM CDT Body Mass Index 22.3 01/10/2022 2:08 PM CDT Plan of Treatment Health Maintenance Due Date Last Done Comments Pneumococcal PPSV23/PCV13 65 + Years / High and Highest Risk (1 of 4 - PCV) 1961 Influenza Vaccine (#1) 2024 05/29/2021, 2019 Care Teams Brace Maker Relationship Specialty Start Date End Date Lay Melo MD [address] [place] [id number] PCP - General Internal Medicine 06/28/21
== END 2024-07-17 07:46 | disposition home or self-care (01) ==
LOC: ANHLAB 07:46
PROVIDERS: PCP Family Medicine; Visit Provider Family Medicine
DX: E11.9 Type 2 diabetes mellitus without complications (principal); Z00.00 Encounter for general adult medical examination without abnormal findings; Z12.5 Encounter for screening for malignant neoplasm of prostate; E78.2 Mixed hyperlipidemia
CPT/HCPCS: 36415; 80053; 80061; 84153; G0103

== ENCOUNTER 2024-12-26 07:31 | Outpatient (CLI) | payer OTHER, SELFPAY ==
--- OUTSIDE RECORDS SUMMARY | 2024-12-26 07:35 | XMS_ITS | Clinical Summary ---
Author Organization [facility] Address [address] [place] [phone] Phone Care Team Providers Care Lab Aid Name Role Phone Lay Melo MD Primary Care Provider [phone] Allergies Active Allergy Reactions Criticality Noted Date Comments Sulfa Antibiotics 03/20/2019 Medications acetaminophen (TYLENOL) 325 MG tablet 1 as needed 0 03/19/2018 Active lisinopril (PRINIVIL,ZESTR [place]) 10 MG tablet 1 daily 0 03/16/2018 [...] 03/19/2018 Ankylosing spondylitis in spine 03/19/2018 Immunizations Immunization Administration Dates Next Due Influenza TIV (IM) [...] at Not on file Legal Sex Male 9:51 AM [facility] Gender Identity Not on file Sexual Orientation Not on file Last Filed Vital Signs Vital Sign Reading Time Taken Comments Blood Pressure 122/64 01/10/2022 2:08 PM CDT Pulse 72 01/10/2022 2:08 PM CDT Temperature 36.8 C (98.2 F) 01/10/2022 2:08 PM CDT Respiratory Rate - - Oxygen Saturation - - Inhaled Oxygen Concentration - - Weight 68.5 kg (151 lb) 01/10/2022 2:08 PM CDT Height 175.3 cm (5' 9) 01/10/2022 2:08 PM CDT Body Mass Index 22.3 01/10/2022 2:08 PM CDT Plan of Treatment Health Maintenance Due Date Last Done Comments Pneumococcal PPSV23/PCV13 65 + Years / Low and Medium Risk (1 of 2 - PCV) 2005 Influenza Vaccine (Season Ended) 2025 05/29/20 21, 03/19/2020 Insurance MEDICARE Care Teams Lab Aid Relationship Specialty Start Date End Date Lay Melo MD [address] [place] [id number] PCP - General Internal Medicine 06/28/21
--- OUTSIDE RECORDS SUMMARY | 2024-12-26 07:35 | XMS_ITS | Clinical Summary ---
Author Organization [facility] Address [address] [phone] Phone Care Team Providers Care Toddler Caregiver Name Role Phone Unavailable Primary Care Provider [...] 2010 Influenza Immunization (#1) 2024 SARS-COV-2 Immunization ( - 2023- season) 2024 Respiratory Syncytial Virus [...]
[2024-12-26 08:07] LABS: Hematocrit 36.8 % (42.0-52.0); Hemoglobin 12.5 g/dL (14.0-18.0); Mean Corpuscular HGB Conc 34.0 g/dl (32-36); Mean Corpuscular Hemoglobin 32.9 pg (26-34); Mean Corpuscular Volume 96.8 fl (80-100); Platelet Count Result 332 k/mm3 (150-375); Red Blood Count 3.80 M/mm3 (4.6-6.20); White Blood Count 5.9 K/mm3 (4.5-10.0)
[2024-12-26 08:18] LABS: Albumin Level 4.4 g/dL (3.5-5.1); Anion Gap 8 mmol/L (4-12); Blood Urea Nitrogen 15 mg/dL (9-20); Calcium 9.7 mg/dL (8.4-10.2); Carbon Dioxide 30 mmol/L (22-30); Chloride 96 mmol/L (98-107); Estimated Glomerular Filt Rate 51; Glucose 109 mg/dL (65-110); Potassium 4.6 mmol/L (3.4-5.0); Sodium 134 mmol/L (137-145)
[2024-12-26 08:43] LABS: Total Protein Urine Random 47 mg/dL; Ur Ttl Prot Creatinine Ratio 0.43 mg/mg (0-0.20)
[2024-12-26 08:45] LABS: Parathyroid Intact 25.8 pg/mL (14.5-75.2)
== END 2024-12-26 07:32 | disposition home or self-care (01) ==
LOC: ANHLAB 07:33
PROVIDERS: PCP Family Medicine; Visit Provider Internal Medicine Nephrology
DX: N18.32 Chronic kidney disease, stage 3b (principal); D64.9 Anemia, unspecified
CPT/HCPCS: 36415; 80069; 82570; 83970; 84156; 85027